=== PATIENT | male | born 1990 | race Caucasian/White ===

== ENCOUNTER 2016-10-15 18:05 | Emergency (ER) | payer MEDICAID ==
[~2016-10-15] VITALS: Ht 185.4 cm; Wt 136.1 kg
[~2016-10-15 18:05] MED LIST: ASPIRIN ADULT L81 M3 PO; BACTRIM DS 8001 TAB PO; BISOPROLOL 5MG T5 MG PO; CLINDAMYCIN HC300 MG PO; FLEXERIL10 MG PO; KEFLEX 500MG.500 MG PO; LISINOPRIL2.5 M1 PO; LORTAB 5/500 501 TAB PO; NAPROSYN375 MG PO; NAPROSYN500 M1 PO; NICOTINE PATCH;21 MG TD; NOMEDS; SEPTRA DS 800 M1 TAB PO; TESSALON PERLE100 MG PO; VOLTAREN75 MG PO; ZITHROMAX Z PA250 MG PO
--- NOTE | 2016-10-15 18:15 | Emergency Room Report ---
History of Present Illness Time Seen by [id number] Presenting Problem in Triage Pt arrived:Walked Presenting Problem:STATES HE HAS BEEN HAVING LEFT SIDED CHEST PAIN SINCE 130 THIS MORNING. 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 N Clinical Suspician of Infection? N Mental Status: 1 - Regular (Normal Baseline) Sepsis Risk:Possible Sepsis Risk Have you (or family members/close friends) recently traveled outside the [place]? N If Yes, where/when: Have you had exposure to infectious disease within the past month? TB? Other? Specify: Comment The patient states that he has been having constant LEFT anterior chest pain for 2 days. It radiates down into his epigastrium and causes him to be nauseated. No vomiting. No cough or fever. No hemoptysis. No leg pain or swelling. Nothing seems to make the pain better or worse. He says he has had chest pains "all of my life" because heart disease runs in his family and he has a leaky valve. He says he was hospitalized here in January because of an overdose and got pneumonia because of it. He said that's when he found that he has a leaky valve. Although he has chronic recurrent chest pain, he says this is different and worse. Current pain is 8/10. He says he no longer uses any drugs. ALLERGIES Coded Allergies: No Known Allergies (02/13/16) Home Medications Reported Medications Lisinopril 2.5 MG PO DAILY 30 Days Aspirin (Aspirin EC) 81 MG PO DAILY 30 Days History Medical History General CAD? No Angina: No MA: No Hypertension? No Hyperlipidemia? No CHF? No DVT? No PE? No COPD? No Asthma? Yes Anemia? No GERD? No Gastric ulcers? No GI Bleed? No Hernia? No Thyroid Problems? No Hypothyroidism? No CVA? No Seizures? No Diabetes? No Insulin Dependent: No Insulin Pump: No Home FSBS? No Renal Insuffiency? No End Stage Renal Disease? No UTI? No Stones? No BPH? No GB Disease: No Nephritic Syndrome? No Asplenia? No Hepatitis? No Sickle Cell Disease? No Arthritis? No Migraines? No Cataracts? No Glaucoma? No MRSA? No HIV? No TB? No Anxiety? No Depression? No Cancer? No More? No Immunization Hx DT/Tetanus 1-4 Years Ago Flu 2016-FSN Pneumonia Received In Past Surgical Hx Previous Surgery?Y TONSILS Family History Family Hx Diabetes Yes CAD Yes Hypertension Yes Hyperlipidemia Yes Cancer Yes TB No Social History Smoking Hx Smoker: Current Every Day Smoker Tobacco: Yes Type Cigarettes Packs/day < 1 Pack Alcohol Alcohol: No Additionial History Additional History Echocardiogram on 05/11/16 showed normal LV size, EF of 55 percent. Mild mitral and tricuspid regurgitation. No pericardial effusion. Aortic valve structurally normal. CT angiogram of the chest on 02/05/16 showed pneumonia, no pulmonary embolism. Review of Systems All Other Systems Reviewed and Negative Constitutional denies fever Respiratory denies cough, shortness of breath Cardiovascular chest pain, denies edema Gastrointestinal abdominal pain, nausea, denies vomiting Physical Exam Vital Signs Vital Signs Date Time Temp Pulse Resp B/P Pulse O2 O2 Flow FiO2 Ox Delivery Rate 10/15 1913 93 20 111/87 95 10/15 1908 20 10/15 1808 98.7 113 20 156/101 93 General Appearance no apparent distress, using a smart phone Eye Exam - bilateral eye normal exam, bilateral eye PERRL, bilateral eye EOMI Ear, Nose, Throat hearing grossly normal, normal ENT inspection Neck normal inspection, non-tender, supple, full range of motion Respiratory Status Yes: trachea midline, chest symmetrical, tender on palpation (LEFT anterior chest). No: respiratory distress. Lung Sounds bilateral: normal breath sounds, lungs clear. Cardiovascular normal exam, regular rate/rhythm, no peripheral edema, no gallop, no JVD, no murmur, no rub, normal peripheral pulses Peripheral Pulses Pulses normal Yes Gastrointestinal normal bowel sounds, normal exam, soft, no organomegaly, no pulsatile mass, no guarding, no rebound, epigastric tenderness Extremities non-tender, normal range of motion, normal inspection Neurologic alert, conveyor feeder II-XII nml as tested, normal exam, oriented x 3 Mental status normal mood/affect Skin intact, normal color, warm/dry Medical Decision Making LABS/Meds/Orders Pt receiving controlled substance in ED? No Results/Orders Laboratory Tests 10/15/16 1805: Sodium 139, Potassium 3.8, Chloride 102, Carbon Dioxide 26, BUN 12, Creatinine 0.9, Estimated Creat Clear 244 H, Estimated GFR (MDRD) 104, Glucose 112 H, Calcium 9.3, Total Bilirubin 0.8, AST 17, ALT 21, Alkaline Phosphatase 63, Creatine Kinase 107, CK-MB (CK-2) Rel Index 0.5, CK and CKMB Interp < 0.5, Troponin I < 0.02, Total Protein 8.4 H, Albumin 4.3, Globulin 4.1 H, Albumin/ Globulin Ratio 1.0 L, Lipase 48 L, D-Dimer < 100, WBC 13.1 H, RBC 5.16, Hgb 16.0, Hct 45.1, MCV 87.5, RDW 12.7, Plt Count 261, MPV 7.3 L, Gran % 67.7, Gran # 8.9 H, Lymphocytes % 23.4, Monocytes % 6.1, Eosinophils % 2.4, Basophils % 0.4, Lymphocytes # 3.1, Monocytes # 0.8, Eosinophils # 0.3, Basophils # 0.1, PUBS MCHC 35.4, MCH 31.0 Current Medication Orders Sig/Kristen Start time Last Medication Dose Route Stop Time Status Admin Ketorolac 0 .STK-MED ONE 10/15 1905 DC Tromethamine .ROUTE Ondansetron HCl 0 .STK-MED ONE 10/15 190 DC .ROUTE Ketorolac 30 MG ONCE ONE 10/15 1900 DC 10/15 Tromethamine IV 10/15 190 1908 Ondansetron HCl 4 MG ONCE ONE 10/15 1900 DC 10/15 IV 10/15 190 1908 Aspirin 0 .STK-MED ONE 10/15 1832 DC .ROUTE Aspirin 324 MG ONCE ONE 10/15 1830 DC 10/15 PO 10/15 183 1836 Sodium Chloride 10 ML PRN PRN 10/15 1830 AC IV 10/16 1828 Orders Procedure Date/time Status D-DIMER 10/15 1856 Complete ELECTROCARDIOGRAM REQUEST 10/15 182 Active CHEST(2 VIEWS-NOT PORTABLE) 10/15 1828 Active IV SALINE LOCK 10/16 1827 Active ELECTRICAL INSTRUMENT MAKER 10/15 182 Active LIPASE 10/15 182 Complete CBC WITH AUTO DIFF 10/15 182 Complete CARDIAC ENZYMES 10/15 1828 Complete CHEM 12 PROFILE 10/158 Complete CM/EKG CM/EKG Comments EKG interpreted by Syd Ramos MD: Rhythm: sinus tachycardia Rate: 120 [place]: LEFT Ectopy: none Conduction: normal ST Segment Changes: none T Wave Changes: none Q Waves: none No evidence of acute ischemia or injury XRAY/CT/US XRAY/CT/US XRAY chest Comment Chest x-ray interpreted by Syd Ramos M.D. No infiltrate, pneumothorax, pleural effusion, or wide mediastinum. Progress - 7:43 PM: Blood pressure 151/88. The patient says he got partial relief from Toradol. Workup negative. Advised patient to follow-up with his primary care physician for further evaluation of chest pain and blood pressure. I estimate there is LOW risk for PULMONARY EMBOLISM, ACUTE CORONARY SYNDROME, OR THORACIC AORTIC DISSECTION, thus I consider the discharge disposition reasonable. Departure Departure Disposition DC Home or Self Care(routine) Clinical Impression Primary Impression: Atypical chest pain Condition STABLE Referrals Kesha PAGE,Joe Noble (Family) Patient Instructions DI for Atypical Chest Pain Additional Instructions Additional instructions for CHEST PAIN: See your physician as soon as possible for further evaluation. Return immediately if worsening chest pain, vomiting, shortness of breath, fever, coughing of blood. Additional instructions regarding BLOOD PRESSURE: One of your blood pressure readings was higher than normal (greater than 120/80) today. Please contact your primary care physician for further evaluation of your blood pressure within 2 wks. ED Critical Care Critical Care No at 1945
[2016-10-15 18:35] LABS: LYMPH # 3.1 K/mm3 (0.7-4.5); LYMPH % 23.4 % (10-50)
[2016-10-15 18:57] LABS: BUN 12 mg/dL (7-18)
[2016-10-15 18:58] LABS: GFR (ESTIMATED) 104 ML/MIN (>60)
[2016-10-15 19:48] VITALS: BP 151/88
--- NOTE | 2016-10-16 05:18 | RADIOLOGY REPORT PS360 ---
CHEST(2 VIEWS-NOT PORTABLE) HISTORY: Chest pain CP ORDERING PHYSICIAN: Syd Ramos MD PATIENT AGE: 26 years COMPARISON: 02/13/2016 FINDINGS: The cardiomediastinal silhouette and pulmonary vascularity are within normal limits. The lungs are clear without infiltrates, suspicious nodules, or pleural effusions. No acute bony abnormalities. IMPRESSION: Negative chest, no acute finding
== END 2016-10-15 19:54 | disposition home or self-care (01) ==
LOC: ER 18:05
PROVIDERS: Emergency Medicine
DX: R07.89 Other chest pain (principal); Z72.0 Tobacco use; R11.0 Nausea
CPT/HCPCS: J2405